=== PATIENT | male | born 1955 | race African-American/Black ===

== ENCOUNTER 2022-11-20 09:27 | Inpatient (IN) | payer OTHER ==
[2022-11-20 10:17] VITALS: BMI 31.8
[2022-11-20] MEDS ORDERED: NALOXONE HCL (KLOXXADO) 8 MG SPRAY NS PRN (12:45)
[2022-11-20] MEDS ORDERED: LOPERAMIDE HCL 2 MG CAPSULE PO PRN (12:45)
[2022-11-20] MEDS ORDERED: POLYETHYLENE GLYCOL (HEALTHYLAX) 3350 17 GM PACKET PO PRN (12:45)
[2022-11-20] MEDS ORDERED: MAGNESIUM HYDROX 2400MG/30ML ORAL SUSPENSION 30 ML CUP PO PRN (12:45)
[2022-11-20] MEDS ORDERED: NALOXONE HCL 0.4 MG/ML VIAL IM PRN (12:45)
[2022-11-20] MEDS ORDERED: MAG HYDROX/AL HYDROX/SIMETH 30 ML UNIT-DOSE CUP PO PRN (12:45)
[2022-11-20] MEDS ORDERED: BENZOCAINE/MENTHOL (CHLORASEPTIC ) LOZENGE MM PRN (12:45)
[2022-11-20] MEDS ORDERED: DICYCLOMINE HCL 10 MG CAPSULE PO PRN (12:45)
[2022-11-20] MEDS ORDERED: BENZONATATE 200 MG CAPSULE PO PRN (12:45)
[2022-11-20] MEDS ORDERED: NICOTINE 10 MG CARTRIDGE (INHALER) IH PRN (12:45)
[2022-11-20] MEDS ORDERED: guaiFENesin 600 MG TABLET.ER (FP) PO PRN (12:45)
[2022-11-20] MEDS ORDERED: hydrOXYzine PAMOATE 25 MG CAPSULE (FP) PO PRN (12:45)
[2022-11-20] MEDS ORDERED: IBUPROFEN 600 MG TABLET (FP) PO PRN (12:45)
[2022-11-20] MEDS ORDERED: BISMUTH SUBSALICYLATE 524 MG/30 ML PO PRN (12:45)
[2022-11-20] MEDS ORDERED: LORazepam 1 MG TABLET PO PRN (12:45)
[2022-11-20] MEDS ORDERED: ONDANSETRON *ODT* 4 MG TABLET SL PRN (12:45)
[2022-11-20] MEDS ORDERED: IBUPROFEN 400 MG TABLET (FP) PO PRN (12:45)
[2022-11-20] MEDS ORDERED: LORazepam 2 MG TABLET ONE (13:38)
[2022-11-20] MEDS: LORazepam 2 MG TABLET PO SCH ×3 (13:43→22:43)
[2022-11-20] MEDS: amLODIPine BESYLATE 2.5 MG TABLET (FP) PO SCH (14:08)
[2022-11-20] MEDS: GABAPENTIN 300 MG CAPSULE PO SCH ×2 (14:41→22:43)
[2022-11-20] MEDS: NITROFURANTOIN MACROCRYSTAL 50 MG CAPSULE (FP) PO SCH ×3 (15:54→22:44)
[2022-11-20 16:04] LABS: HEMATOCRIT 40.1 % (35.4-49); HEMOGLOBIN 13.3 GM/dL (11.7-16.9); MCH 29.9 pg (25.7-33.7); MEAN CELL VOLUME 90.6 fl (80-96); MEAN PLT VOLUME 8.2 fl (7.5-11.1); PLATELET COUNT 311 10^3/uL (134-434); RBC 4.43 M/mm3 (4.00-5.60); RDW 15.1 % (11.9-15.9); WHITE BLOOD COUNT 6.3 K/mm3 (4.0-10.0)
[2022-11-20] MEDS ORDERED: DIVALPROEX NA *ER* EXTEND REL 500 MG TABLET.SA (FP) PO SCH (22:00)
[2022-11-20] MEDS ORDERED: MELATONIN 5 MG TABLETS PO SCH (22:00)
[2022-11-20] MEDS: THIAMINE HCL 100 MG TABLET (FP) PO SCH (22:43)
[2022-11-20] MEDS: CELECOXIB 100 MG CAPSULE PO SCH (22:43)
[2022-11-21] MEDS: GABAPENTIN 300 MG CAPSULE PO SCH ×3 (05:34→22:19)
[2022-11-21] MEDS: LORazepam 2 MG TABLET PO SCH ×2 (05:34→11:03)
[2022-11-21] MEDS ORDERED: ISOSORBIDE MONONITRATE 60 MG TAB.SR.24H (FP) PO SCH (10:00)
[2022-11-21] MEDS ORDERED: PATIENT'S OWN MEDICATION (NON-FORMULARY) (Folic Acid [Folic Acid] 0.8 MG Tablet) PO SCH (10:00)
[2022-11-21] MEDS: NITROFURANTOIN MACROCRYSTAL 50 MG CAPSULE (FP) PO SCH ×4 (10:45→22:19)
[2022-11-21] MEDS: amLODIPine BESYLATE 2.5 MG TABLET (FP) PO SCH (10:45)
[2022-11-21] MEDS: PRENATAL VITAMINS W/ FOLIC ACID TABLET (FP) PO SCH (10:45)
[2022-11-21] MEDS: CELECOXIB 100 MG CAPSULE PO SCH ×2 (10:45→22:19)
[2022-11-21] MEDS: NICOTINE 21 MG/24 HOURS TOPICAL PATCH TD SCH (10:45)
[2022-11-21] MEDS: DULoxetine HCL 30 MG CAPSULE.DR PO SCH ×2 (10:46→22:20)
[2022-11-21] MEDS: METHOCARBAMOL 500 MG TABLET PO PRN ×2 (10:47→18:47)
[2022-11-21 11:28] LABS: POTASSIUM 5.4 mmol/L (3.5-5.1)
[2022-11-21 11:31] LABS: ALBUMIN 3.6 g/dl (3.4-5.0)
[2022-11-21 11:34] LABS: CREATININE 0.9 mg/dL (0.55-1.3)
[2022-11-21 11:35] LABS: BILIRUBIN,TOTAL 0.8 mg/dL (0.2-1); TOT PROT 7.3 g/dl (6.4-8.2)
[2022-11-21] MEDS: ARTIFICIAL TEARS (POLYVINYL ALCOHOL) OPTH DROPS OD SCH (12:24)
[2022-11-21] MEDS: ISOSORBIDE MONONITRATE 30 MG TAB.SR.24H (FP) PO SCH (12:24)
[2022-11-21] MEDS ORDERED: MELATONIN 5 MG TABLETS PO PRN (12:49)
[2022-11-21] MEDS ORDERED: chlordiazePOXIDE HCL 25 MG CAPSULE PO PRN (12:50)
[2022-11-21] MEDS ORDERED: SODIUM POLYSTYRENE SULFONATE 15 GM/60 ML BOTTLE PO ONE (12:51)
[2022-11-21] MEDS: NICOTINE POLACRILEX 2 MG GUM BUC PRN (13:20)
[2022-11-21] MEDS: ASPIRIN COATED 81 MG TABLET.EC PO SCH (15:36)
[2022-11-21] MEDS: chlordiazePOXIDE HCL 25 MG CAPSULE PO SCH ×2 (17:20→22:20)
[2022-11-21] MEDS: THIAMINE HCL 100 MG TABLET (FP) PO SCH (22:21)
[2022-11-22] MEDS ORDERED: LORazepam 1 MG TABLET PO SCH (05:00)
[2022-11-22] MEDS: GABAPENTIN 300 MG CAPSULE PO SCH ×3 (05:53→22:24)
[2022-11-22] MEDS: chlordiazePOXIDE HCL 25 MG CAPSULE PO SCH ×4 (05:53→22:24)
[2022-11-22] MEDS: NICOTINE 21 MG/24 HOURS TOPICAL PATCH TD SCH (10:32)
[2022-11-22] MEDS: ARTIFICIAL TEARS (POLYVINYL ALCOHOL) OPTH DROPS OD SCH (10:33)
[2022-11-22] MEDS: CELECOXIB 100 MG CAPSULE PO SCH ×2 (10:33→22:24)
[2022-11-22] MEDS: ASPIRIN COATED 81 MG TABLET.EC PO SCH (10:33)
[2022-11-22] MEDS: PRENATAL VITAMINS W/ FOLIC ACID TABLET (FP) PO SCH (10:33)
[2022-11-22] MEDS: NITROFURANTOIN MACROCRYSTAL 50 MG CAPSULE (FP) PO SCH ×4 (10:34→22:24)
[2022-11-22] MEDS: ISOSORBIDE MONONITRATE 30 MG TAB.SR.24H (FP) PO SCH (10:34)
[2022-11-22] MEDS: amLODIPine BESYLATE 2.5 MG TABLET (FP) PO SCH (10:34)
[2022-11-22] MEDS: DULoxetine HCL 30 MG CAPSULE.DR PO SCH (10:48)
[2022-11-22] MEDS: THIAMINE HCL 100 MG TABLET (FP) PO SCH (22:24)
[2022-11-22] MEDS: QUEtiapine FUMARATE 400 MG TABLET PO SCH (22:24)
[2022-11-22] MEDS: DIVALPROEX NA *ER* EXTEND REL 500 MG TABLET.SA (FP) PO SCH (22:25)
[2022-11-23] MEDS ORDERED: LORazepam 0.5 MG TABLET PO PRN
[2022-11-23] MEDS ORDERED: LORazepam 0.5 MG TABLET PO SCH (05:00)
[2022-11-23] MEDS: GABAPENTIN 300 MG CAPSULE PO SCH ×3 (05:20→22:15)
[2022-11-23] MEDS: chlordiazePOXIDE HCL 10 MG CAPSULE PO SCH ×4 (05:20→22:19)
[2022-11-23] MEDS: ARTIFICIAL TEARS (POLYVINYL ALCOHOL) OPTH DROPS OD SCH (10:12)
[2022-11-23] MEDS: ASPIRIN COATED 81 MG TABLET.EC PO SCH (10:13)
[2022-11-23] MEDS: amLODIPine BESYLATE 2.5 MG TABLET (FP) PO SCH (10:13)
[2022-11-23] MEDS: DULoxetine HCL 30 MG CAPSULE.DR PO SCH (10:13)
[2022-11-23] MEDS: NITROFURANTOIN MACROCRYSTAL 50 MG CAPSULE (FP) PO SCH ×4 (10:13→22:17)
[2022-11-23] MEDS: PRENATAL VITAMINS W/ FOLIC ACID TABLET (FP) PO SCH (10:13)
[2022-11-23] MEDS: ISOSORBIDE MONONITRATE 30 MG TAB.SR.24H (FP) PO SCH (10:14)
[2022-11-23] MEDS: CELECOXIB 100 MG CAPSULE PO SCH ×2 (10:14→22:16)
[2022-11-23] MEDS: NICOTINE 21 MG/24 HOURS TOPICAL PATCH TD SCH (10:14)
[2022-11-23] MEDS: ACETAMINOPHEN 325 MG TABLET (FP) PO PRN (10:54)
[2022-11-23] MEDS: NICOTINE POLACRILEX 2 MG GUM BUC PRN ×2 (14:06→18:10)
[2022-11-23] MEDS: METHOCARBAMOL 500 MG TABLET PO PRN (14:08)
[2022-11-23] MEDS: THIAMINE HCL 100 MG TABLET (FP) PO SCH (22:15)
[2022-11-23] MEDS: QUEtiapine FUMARATE 400 MG TABLET PO SCH (22:16)
[2022-11-23] MEDS: DIVALPROEX NA *ER* EXTEND REL 500 MG TABLET.SA (FP) PO SCH (22:17)
[2022-11-24] MEDS ORDERED: chlordiazePOXIDE HCL 10 MG CAPSULE PO PRN
[2022-11-24] MEDS ORDERED: LORazepam 0.5 MG TABLET PO ONE (05:00)
[2022-11-24] MEDS: GABAPENTIN 300 MG CAPSULE PO SCH ×3 (06:00→21:07)
[2022-11-24] MEDS: chlordiazePOXIDE HCL 10 MG CAPSULE PO SCH ×2 (06:02→17:22)
[2022-11-24] MEDS: PRENATAL VITAMINS W/ FOLIC ACID TABLET (FP) PO SCH (10:11)
[2022-11-24] MEDS: NICOTINE 21 MG/24 HOURS TOPICAL PATCH TD SCH (10:12)
[2022-11-24] MEDS: ARTIFICIAL TEARS (POLYVINYL ALCOHOL) OPTH DROPS OD SCH (10:13)
[2022-11-24] MEDS: CELECOXIB 100 MG CAPSULE PO SCH ×2 (10:13→21:08)
[2022-11-24] MEDS: NITROFURANTOIN MACROCRYSTAL 50 MG CAPSULE (FP) PO SCH ×4 (10:13→21:08)
[2022-11-24] MEDS: NICOTINE POLACRILEX 2 MG GUM BUC PRN ×2 (10:14→17:25)
[2022-11-24] MEDS: ASPIRIN COATED 81 MG TABLET.EC PO SCH (10:14)
[2022-11-24] MEDS: DULoxetine HCL 30 MG CAPSULE.DR PO SCH (10:14)
[2022-11-24] MEDS: ISOSORBIDE MONONITRATE 30 MG TAB.SR.24H (FP) PO SCH (10:14)
[2022-11-24] MEDS: amLODIPine BESYLATE 2.5 MG TABLET (FP) PO SCH (10:14)
[2022-11-24] MEDS: THIAMINE HCL 100 MG TABLET (FP) PO SCH (21:07)
[2022-11-24] MEDS: QUEtiapine FUMARATE 400 MG TABLET PO SCH (21:07)
[2022-11-24] MEDS: DIVALPROEX NA *ER* EXTEND REL 500 MG TABLET.SA (FP) PO SCH (21:09)
[2022-11-24] MEDS: ACETAMINOPHEN 325 MG TABLET (FP) PO PRN (21:10)
[2022-11-25] MEDS ORDERED: chlordiazePOXIDE HCL 10 MG CAPSULE PO ONE (05:00)
[2022-11-25] MEDS: GABAPENTIN 300 MG CAPSULE PO SCH (05:53)
[2022-11-25 09:29] VITALS: BP 145/93; PULSE 83; RESP 19; TEMP 97.3
[2022-11-25] MEDS: PRENATAL VITAMINS W/ FOLIC ACID TABLET (FP) PO SCH (10:38)
[2022-11-25] MEDS: DULoxetine HCL 30 MG CAPSULE.DR PO SCH (10:39)
[2022-11-25] MEDS: ISOSORBIDE MONONITRATE 30 MG TAB.SR.24H (FP) PO SCH (10:39)
[2022-11-25] MEDS: CELECOXIB 100 MG CAPSULE PO SCH (10:40)
[2022-11-25] MEDS: amLODIPine BESYLATE 2.5 MG TABLET (FP) PO SCH (10:40)
[2022-11-25] MEDS: ASPIRIN COATED 81 MG TABLET.EC PO SCH (10:40)
[2022-11-25] MEDS: ARTIFICIAL TEARS (POLYVINYL ALCOHOL) OPTH DROPS OD SCH (10:41)
[2022-11-25] MEDS: NITROFURANTOIN MACROCRYSTAL 50 MG CAPSULE (FP) PO SCH (10:41)
[2022-11-25] MEDS: NICOTINE 21 MG/24 HOURS TOPICAL PATCH TD SCH (10:43)
[2022-11-25] MEDS: NICOTINE POLACRILEX 2 MG GUM BUC PRN (10:44)
== END 2022-11-25 12:19 | disposition other institution (70) | DRG 897 ==
LOC: YASAS 09:27 → Y6N 12:47
PROVIDERS: ADMIT Allergy & Immunology; ATTEND Surgery
PROC: HZ2ZZZZ Detoxification Services for Substance Abuse Treatment (ICD-10-PCS; principal; 2022-11-20)
DX: F10.230 Alcohol dependence with withdrawal, uncomplicated (principal); F17.210 Nicotine dependence, cigarettes, uncomplicated; F10.282 Alcohol dependence with alcohol-induced sleep disorder; F10.280 Alcohol dependence with alcohol-induced anxiety disorder; F10.24 Alcohol dependence with alcohol-induced mood disorder; F31.9 Bipolar disorder, unspecified; E87.5 Hyperkalemia; E78.5 Hyperlipidemia, unspecified; I10 Essential (primary) hypertension; Z62.810 Personal history of physical and sexual abuse in childhood; Z85.46 Personal history of malignant neoplasm of prostate; Z87.440 Personal history of urinary (tract) infections; Z88.8 Allergy status to other drugs, medicaments and biological substances; Z86.79 Personal history of other diseases of the circulatory system
CPT/HCPCS: 36415; 80053; 80164; 82140; 84132; 85027; 86780; 87811; 93005; 93010; C9803-CS; U0003; U0005

== ENCOUNTER 2022-11-25 12:29 | Inpatient (IN) | payer OTHER ==
[2022-11-25] MEDS ORDERED: BENZONATATE 200 MG CAPSULE PO PRN (13:09)
[2022-11-25] MEDS ORDERED: BENZOCAINE/MENTHOL (CHLORASEPTIC ) LOZENGE MM PRN (13:09)
[2022-11-25] MEDS ORDERED: POLYETHYLENE GLYCOL (HEALTHYLAX) 3350 17 GM PACKET PO PRN (13:09)
[2022-11-25] MEDS ORDERED: IBUPROFEN 600 MG TABLET (FP) PO PRN (13:09)
[2022-11-25] MEDS ORDERED: hydrOXYzine PAMOATE 25 MG CAPSULE (FP) PO PRN (13:09)
[2022-11-25] MEDS ORDERED: guaiFENesin 600 MG TABLET.ER (FP) PO PRN (13:09)
[2022-11-25] MEDS ORDERED: METHOCARBAMOL 500 MG TABLET PO PRN (13:09)
[2022-11-25] MEDS ORDERED: LOPERAMIDE HCL 2 MG CAPSULE PO PRN (13:09)
[2022-11-25] MEDS ORDERED: MAG HYDROX/AL HYDROX/SIMETH 30 ML UNIT-DOSE CUP PO PRN (13:09)
[2022-11-25] MEDS ORDERED: IBUPROFEN 400 MG TABLET (FP) PO PRN (13:09)
[2022-11-25] MEDS ORDERED: AMMONIUM LACTATE 12% LOTION 225 GM BOTTLE TP PRN (13:09)
[2022-11-25] MEDS ORDERED: ACETAMINOPHEN 325 MG TABLET (FP) PO PRN (13:09)
[2022-11-25] MEDS ORDERED: [UNRECOGNIZED DRUG - OTHER] PO SCH (14:00)
[2022-11-25] MEDS: NITROFURANTOIN MACROCRYSTAL 50 MG CAPSULE (FP) PO SCH ×2 (15:03→17:58)
[2022-11-25] MEDS: GABAPENTIN 300 MG CAPSULE PO SCH ×2 (15:03→21:29)
[2022-11-25] MEDS: ACETAMINOPHEN 500 MG TABLET (FP) PO PRN (17:57)
[2022-11-25] MEDS: NICOTINE POLACRILEX 2 MG GUM BUC PRN (17:59)
[2022-11-25] MEDS: THIAMINE HCL 100 MG TABLET (FP) PO SCH (21:28)
[2022-11-25] MEDS: CELECOXIB 200 MG CAPSULE PO SCH (21:29)
[2022-11-25] MEDS: DIVALPROEX NA *ER* EXTEND REL 500 MG TABLET.SA (FP) PO SCH (21:29)
[2022-11-25] MEDS ORDERED: MELATONIN 5 MG TABLETS PO SCH (22:00)
[2022-11-25] MEDS ORDERED: QUEtiapine FUMARATE 400 MG TABLET PO SCH (22:00)
[2022-11-26] MEDS: GABAPENTIN 300 MG CAPSULE PO SCH ×3 (06:39→21:34)
[2022-11-26] MEDS: ACETAMINOPHEN 500 MG TABLET (FP) PO PRN ×3 (06:42→21:37)
[2022-11-26] MEDS ORDERED: ISOSORBIDE MONONITRATE 60 MG TAB.SR.24H (FP) PO SCH (10:00)
[2022-11-26] MEDS: CELECOXIB 200 MG CAPSULE PO SCH ×2 (10:09→21:33)
[2022-11-26] MEDS: NICOTINE 21 MG/24 HOURS TOPICAL PATCH TD SCH (10:09)
[2022-11-26] MEDS: amLODIPine BESYLATE 2.5 MG TABLET (FP) PO SCH (10:09)
[2022-11-26] MEDS: ARTIFICIAL TEARS (POLYVINYL ALCOHOL) OPTH DROPS OU SCH (10:09)
[2022-11-26] MEDS: PRENATAL VITAMINS W/ FOLIC ACID TABLET (FP) PO SCH (10:10)
[2022-11-26] MEDS: ASPIRIN 81 MG CHEWABLE TABLETS PO SCH (10:10)
[2022-11-26] MEDS: ISOSORBIDE MONONITRATE 30 MG TAB.SR.24H (FP) PO SCH (10:11)
[2022-11-26] MEDS: DULoxetine HCL 30 MG CAPSULE.DR PO SCH (10:11)
[2022-11-26] MEDS: NICOTINE POLACRILEX 2 MG GUM BUC PRN ×2 (10:11→13:19)
[2022-11-26] MEDS: DOCUSATE SODIUM 100 MG CAPSULE (FP) PO PRN (13:17)
[2022-11-26] MEDS: METHYL SALICYLATE/MENTHOL OINT 30 GM TUBE TP SCH (21:31)
[2022-11-26] MEDS: DIVALPROEX NA *ER* EXTEND REL 500 MG TABLET.SA (FP) PO SCH (21:33)
[2022-11-26] MEDS: THIAMINE HCL 100 MG TABLET (FP) PO SCH (21:34)
[2022-11-26] MEDS: QUETIAPINE FUMARATE 300 MG, QUETIAPINE FUMARATE 200 MG PO SCH (21:34)
[2022-11-26] MEDS ORDERED: QUEtiapine FUMARATE 400 MG TABLET PO SCH (22:00)
[2022-11-27] MEDS: GABAPENTIN 300 MG CAPSULE PO SCH ×3 (06:44→21:10)
[2022-11-27] MEDS: amLODIPine BESYLATE 2.5 MG TABLET (FP) PO SCH (09:58)
[2022-11-27] MEDS: DULoxetine HCL 30 MG CAPSULE.DR PO SCH (09:58)
[2022-11-27] MEDS: CELECOXIB 200 MG CAPSULE PO SCH ×2 (09:58→21:10)
[2022-11-27] MEDS: ASPIRIN 81 MG CHEWABLE TABLETS PO SCH (09:58)
[2022-11-27] MEDS: PRENATAL VITAMINS W/ FOLIC ACID TABLET (FP) PO SCH (09:58)
[2022-11-27] MEDS: ISOSORBIDE MONONITRATE 30 MG TAB.SR.24H (FP) PO SCH (09:59)
[2022-11-27] MEDS: NICOTINE 21 MG/24 HOURS TOPICAL PATCH TD SCH (09:59)
[2022-11-27] MEDS: ARTIFICIAL TEARS (POLYVINYL ALCOHOL) OPTH DROPS OU SCH (09:59)
[2022-11-27] MEDS: DOCUSATE SODIUM 100 MG CAPSULE (FP) PO PRN (10:01)
[2022-11-27] MEDS: NICOTINE POLACRILEX 2 MG GUM BUC PRN ×2 (10:01→13:48)
[2022-11-27] MEDS: METHYL SALICYLATE/MENTHOL OINT 30 GM TUBE TP SCH ×2 (10:04→21:11)
[2022-11-27] MEDS: THIAMINE HCL 100 MG TABLET (FP) PO SCH (21:09)
[2022-11-27] MEDS: DIVALPROEX NA *ER* EXTEND REL 500 MG TABLET.SA (FP) PO SCH (21:10)
[2022-11-27] MEDS: QUETIAPINE FUMARATE 300 MG, QUETIAPINE FUMARATE 200 MG PO SCH (21:11)
[2022-11-28] MEDS: GABAPENTIN 300 MG CAPSULE PO SCH ×3 (05:58→21:19)
[2022-11-28] MEDS: BACLOFEN 10 MG TABLET (FP) PO PRN ×2 (05:58→13:30)
[2022-11-28] MEDS: PRENATAL VITAMINS W/ FOLIC ACID TABLET (FP) PO SCH (09:53)
[2022-11-28] MEDS: ASPIRIN 81 MG CHEWABLE TABLETS PO SCH (09:53)
[2022-11-28] MEDS: amLODIPine BESYLATE 2.5 MG TABLET (FP) PO SCH (09:53)
[2022-11-28] MEDS: ARTIFICIAL TEARS (POLYVINYL ALCOHOL) OPTH DROPS OU SCH (09:53)
[2022-11-28] MEDS: NICOTINE 21 MG/24 HOURS TOPICAL PATCH TD SCH (09:53)
[2022-11-28] MEDS: DULoxetine HCL 30 MG CAPSULE.DR PO SCH (09:53)
[2022-11-28] MEDS: CELECOXIB 200 MG CAPSULE PO SCH ×2 (09:54→21:19)
[2022-11-28] MEDS: DOCUSATE SODIUM 100 MG CAPSULE (FP) PO PRN (09:57)
[2022-11-28] MEDS: NICOTINE POLACRILEX 2 MG GUM BUC PRN (09:57)
[2022-11-28] MEDS: METHYL SALICYLATE/MENTHOL OINT 30 GM TUBE TP SCH ×2 (10:24→21:21)
[2022-11-28] MEDS: ISOSORBIDE MONONITRATE 60 MG TAB.SR.24H (FP) PO SCH (10:54)
[2022-11-28] MEDS: NICOTINE 10 MG CARTRIDGE (INHALER) IH SCH (16:26)
[2022-11-28] MEDS: THIAMINE HCL 100 MG TABLET (FP) PO SCH (21:18)
[2022-11-28] MEDS: DIVALPROEX NA *ER* EXTEND REL 500 MG TABLET.SA (FP) PO SCH (21:19)
[2022-11-28] MEDS: QUETIAPINE FUMARATE 300 MG, QUETIAPINE FUMARATE 200 MG PO SCH (21:19)
[2022-11-28] MEDS: MAGNESIUM HYDROX 2400MG/30ML ORAL SUSPENSION 30 ML CUP PO PRN (21:20)
[2022-11-29] MEDS: GABAPENTIN 300 MG CAPSULE PO SCH ×3 (06:10→21:08)
[2022-11-29] MEDS: PRENATAL VITAMINS W/ FOLIC ACID TABLET (FP) PO SCH (09:59)
[2022-11-29] MEDS: NICOTINE 10 MG CARTRIDGE (INHALER) IH SCH (09:59)
[2022-11-29] MEDS: NICOTINE 21 MG/24 HOURS TOPICAL PATCH TD SCH (09:59)
[2022-11-29] MEDS: BACLOFEN 10 MG TABLET (FP) PO PRN ×2 (10:01→21:08)
[2022-11-29] MEDS: ASPIRIN 81 MG CHEWABLE TABLETS PO SCH (10:02)
[2022-11-29] MEDS: amLODIPine BESYLATE 2.5 MG TABLET (FP) PO SCH (10:02)
[2022-11-29] MEDS: CELECOXIB 200 MG CAPSULE PO SCH ×2 (10:02→21:08)
[2022-11-29] MEDS: DULoxetine HCL 30 MG CAPSULE.DR PO SCH (10:02)
[2022-11-29] MEDS: ISOSORBIDE MONONITRATE 60 MG TAB.SR.24H (FP) PO SCH (10:03)
[2022-11-29] MEDS: ARTIFICIAL TEARS (POLYVINYL ALCOHOL) OPTH DROPS OU SCH (10:04)
[2022-11-29] MEDS: METHYL SALICYLATE/MENTHOL OINT 30 GM TUBE TP SCH ×2 (10:04→21:09)
[2022-11-29] MEDS: HYDROCORTISONE 2.5% TOPICAL CREAM 30 GM TUBE RC PRN ×2 (12:39→21:10)
[2022-11-29] MEDS: ACETAMINOPHEN 500 MG TABLET (FP) PO PRN (12:41)
[2022-11-29] MEDS: DOCUSATE SODIUM 100 MG CAPSULE (FP) PO PRN ×2 (12:42→21:08)
[2022-11-29] MEDS: NICOTINE POLACRILEX 2 MG GUM BUC PRN (12:48)
[2022-11-29] MEDS: QUETIAPINE FUMARATE 300 MG, QUETIAPINE FUMARATE 200 MG PO SCH (21:08)
[2022-11-29] MEDS: DIVALPROEX NA *ER* EXTEND REL 500 MG TABLET.SA (FP) PO SCH (21:08)
[2022-11-29] MEDS: THIAMINE HCL 100 MG TABLET (FP) PO SCH (21:08)
[2022-11-30] MEDS: GABAPENTIN 300 MG CAPSULE PO SCH ×3 (06:18→21:22)
[2022-11-30] MEDS: BACLOFEN 10 MG TABLET (FP) PO PRN ×2 (06:18→21:22)
[2022-11-30] MEDS: NICOTINE 10 MG CARTRIDGE (INHALER) IH SCH (10:16)
[2022-11-30] MEDS: PRENATAL VITAMINS W/ FOLIC ACID TABLET (FP) PO SCH (10:16)
[2022-11-30] MEDS: DULoxetine HCL 30 MG CAPSULE.DR PO SCH (10:17)
[2022-11-30] MEDS: ASPIRIN 81 MG CHEWABLE TABLETS PO SCH (10:17)
[2022-11-30] MEDS: CELECOXIB 200 MG CAPSULE PO SCH ×2 (10:18→21:23)
[2022-11-30] MEDS: amLODIPine BESYLATE 2.5 MG TABLET (FP) PO SCH (10:18)
[2022-11-30] MEDS: ISOSORBIDE MONONITRATE 60 MG TAB.SR.24H (FP) PO SCH (10:19)
[2022-11-30] MEDS: METHYL SALICYLATE/MENTHOL OINT 30 GM TUBE TP SCH ×2 (10:20→21:23)
[2022-11-30] MEDS: ACETAMINOPHEN 500 MG TABLET (FP) PO PRN ×2 (10:20→17:39)
[2022-11-30] MEDS: ARTIFICIAL TEARS (POLYVINYL ALCOHOL) OPTH DROPS OU SCH (10:22)
[2022-11-30] MEDS: MAGNESIUM HYDROX 2400MG/30ML ORAL SUSPENSION 30 ML CUP PO PRN (10:23)
[2022-11-30] MEDS: HYDROCORTISONE 2.5% TOPICAL CREAM 30 GM TUBE RC PRN (10:24)
[2022-11-30] MEDS: NICOTINE POLACRILEX 2 MG GUM BUC PRN (11:00)
[2022-11-30] MEDS: NICOTINE 21 MG/24 HOURS TOPICAL PATCH TD SCH (11:00)
[2022-11-30] MEDS: QUETIAPINE FUMARATE 300 MG, QUETIAPINE FUMARATE 200 MG PO SCH (21:21)
[2022-11-30] MEDS: DIVALPROEX NA *ER* EXTEND REL 500 MG TABLET.SA (FP) PO SCH (21:22)
[2022-11-30] MEDS: THIAMINE HCL 100 MG TABLET (FP) PO SCH (21:22)
[2022-12-01] MEDS: BACLOFEN 10 MG TABLET (FP) PO PRN (06:16)
[2022-12-01] MEDS: GABAPENTIN 300 MG CAPSULE PO SCH ×3 (06:17→21:25)
[2022-12-01] MEDS: ACETAMINOPHEN 500 MG TABLET (FP) PO PRN (06:17)
[2022-12-01] MEDS: MAGNESIUM HYDROX 2400MG/30ML ORAL SUSPENSION 30 ML CUP PO PRN (06:21)
[2022-12-01] MEDS: DOCUSATE SODIUM 100 MG CAPSULE (FP) PO PRN (06:21)
[2022-12-01] MEDS: NICOTINE 10 MG CARTRIDGE (INHALER) IH SCH (09:59)
[2022-12-01] MEDS: NICOTINE 21 MG/24 HOURS TOPICAL PATCH TD SCH (09:59)
[2022-12-01] MEDS: ARTIFICIAL TEARS (POLYVINYL ALCOHOL) OPTH DROPS OU SCH (10:00)
[2022-12-01] MEDS: DULoxetine HCL 30 MG CAPSULE.DR PO SCH (10:00)
[2022-12-01] MEDS: METHYL SALICYLATE/MENTHOL OINT 30 GM TUBE TP SCH ×2 (10:01→21:27)
[2022-12-01] MEDS: amLODIPine BESYLATE 2.5 MG TABLET (FP) PO SCH (10:01)
[2022-12-01] MEDS: CELECOXIB 200 MG CAPSULE PO SCH ×2 (10:01→21:26)
[2022-12-01] MEDS: ASPIRIN 81 MG CHEWABLE TABLETS PO SCH (10:01)
[2022-12-01] MEDS: PRENATAL VITAMINS W/ FOLIC ACID TABLET (FP) PO SCH (10:02)
[2022-12-01] MEDS: NICOTINE POLACRILEX 2 MG GUM BUC PRN (10:02)
[2022-12-01] MEDS: ISOSORBIDE MONONITRATE 60 MG TAB.SR.24H (FP) PO SCH (10:02)
[2022-12-01] MEDS: COLLOIDAL OATMEAL 1 BAR EACH TP PRN (14:42)
[2022-12-01] MEDS: DIVALPROEX NA *ER* EXTEND REL 500 MG TABLET.SA (FP) PO SCH (21:26)
[2022-12-01] MEDS: QUETIAPINE FUMARATE 300 MG, QUETIAPINE FUMARATE 200 MG PO SCH (21:26)
[2022-12-01] MEDS: THIAMINE HCL 100 MG TABLET (FP) PO SCH (21:27)
[2022-12-02] MEDS: BACLOFEN 10 MG TABLET (FP) PO PRN ×2 (06:14→13:23)
[2022-12-02] MEDS: ACETAMINOPHEN 500 MG TABLET (FP) PO PRN ×3 (06:14→21:33)
[2022-12-02] MEDS: GABAPENTIN 300 MG CAPSULE PO SCH ×3 (06:15→21:34)
[2022-12-02] MEDS: NICOTINE 21 MG/24 HOURS TOPICAL PATCH TD SCH (10:20)
[2022-12-02] MEDS: NICOTINE 10 MG CARTRIDGE (INHALER) IH SCH (10:20)
[2022-12-02] MEDS: ARTIFICIAL TEARS (POLYVINYL ALCOHOL) OPTH DROPS OU SCH (10:21)
[2022-12-02] MEDS: ASPIRIN 81 MG CHEWABLE TABLETS PO SCH (10:22)
[2022-12-02] MEDS: PRENATAL VITAMINS W/ FOLIC ACID TABLET (FP) PO SCH (10:22)
[2022-12-02] MEDS: DULoxetine HCL 30 MG CAPSULE.DR PO SCH (10:22)
[2022-12-02] MEDS: amLODIPine BESYLATE 2.5 MG TABLET (FP) PO SCH (10:22)
[2022-12-02] MEDS: CELECOXIB 200 MG CAPSULE PO SCH ×2 (10:22→21:35)
[2022-12-02] MEDS: ISOSORBIDE MONONITRATE 60 MG TAB.SR.24H (FP) PO SCH (10:52)
[2022-12-02] MEDS: METHYL SALICYLATE/MENTHOL OINT 30 GM TUBE TP SCH ×2 (10:53→21:36)
[2022-12-02] MEDS: NICOTINE POLACRILEX 2 MG GUM BUC PRN (10:53)
[2022-12-02 18:39] LABS: PH,URINE 7.5 (5.0-8.0); URINE APPEARANCE CLEAR; URINE BILIRUBIN NEGATIVE (NEGATIVE); URINE COLOR YELLOW; URINE GLUCOSE (UA) NEGATIVE (NEGATIVE); URINE KETONE NEGATIVE (NEGATIVE); URINE LEUK ESTERASE NEGATIVE (NEGATIVE); URINE NITRITE NEGATIVE (NEGATIVE); URINE PROTEIN NEGATIVE (NEGATIVE); URINE UROBILINOGEN 0.2 mg/dL (0.2-1.0)
[2022-12-02] MEDS: QUETIAPINE FUMARATE 300 MG, QUETIAPINE FUMARATE 200 MG PO SCH (21:34)
[2022-12-02] MEDS: THIAMINE HCL 100 MG TABLET (FP) PO SCH (21:35)
[2022-12-02] MEDS: DIVALPROEX NA *ER* EXTEND REL 500 MG TABLET.SA (FP) PO SCH (21:35)
[2022-12-03] MEDS: GABAPENTIN 300 MG CAPSULE PO SCH ×3 (06:20→21:12)
[2022-12-03] MEDS: BACLOFEN 10 MG TABLET (FP) PO PRN ×2 (06:22→21:12)
[2022-12-03] MEDS: ACETAMINOPHEN 500 MG TABLET (FP) PO PRN ×2 (07:01→21:14)
[2022-12-03] MEDS ORDERED: TAMSULOSIN HCL 0.4 MG CAP PO SCH (08:30)
[2022-12-03] MEDS: ASPIRIN 81 MG CHEWABLE TABLETS PO SCH (10:27)
[2022-12-03] MEDS: ARTIFICIAL TEARS (POLYVINYL ALCOHOL) OPTH DROPS OU SCH (10:28)
[2022-12-03] MEDS: HYDROCORTISONE 2.5% TOPICAL CREAM 30 GM TUBE RC PRN (10:29)
[2022-12-03] MEDS: METHYL SALICYLATE/MENTHOL OINT 30 GM TUBE TP SCH ×2 (10:29→21:14)
[2022-12-03] MEDS: CELECOXIB 200 MG CAPSULE PO SCH ×2 (10:30→21:12)
[2022-12-03] MEDS: DULoxetine HCL 30 MG CAPSULE.DR PO SCH (10:30)
[2022-12-03] MEDS: NICOTINE 10 MG CARTRIDGE (INHALER) IH SCH (10:32)
[2022-12-03] MEDS: NICOTINE 21 MG/24 HOURS TOPICAL PATCH TD SCH (10:32)
[2022-12-03] MEDS: ISOSORBIDE MONONITRATE 30 MG TAB.SR.24H (FP) PO SCH (10:32)
[2022-12-03] MEDS: PRENATAL VITAMINS W/ FOLIC ACID TABLET (FP) PO SCH (10:33)
[2022-12-03] MEDS ORDERED: TAMSULOSIN HCL 0.4 MG CAP PO ONE (10:59)
[2022-12-03] MEDS: amLODIPine BESYLATE 2.5 MG TABLET (FP) PO SCH (11:37)
[2022-12-03] MEDS: NICOTINE POLACRILEX 2 MG GUM BUC PRN (11:39)
[2022-12-03] MEDS: THIAMINE HCL 100 MG TABLET (FP) PO SCH (21:12)
[2022-12-03] MEDS: DIVALPROEX NA *ER* EXTEND REL 500 MG TABLET.SA (FP) PO SCH (21:12)
[2022-12-03] MEDS: QUETIAPINE FUMARATE 300 MG, QUETIAPINE FUMARATE 200 MG PO SCH (21:13)
[2022-12-04] MEDS: GABAPENTIN 300 MG CAPSULE PO SCH ×3 (06:16→21:21)
[2022-12-04] MEDS: BACLOFEN 10 MG TABLET (FP) PO PRN (06:17)
[2022-12-04] MEDS: ACETAMINOPHEN 500 MG TABLET (FP) PO PRN (06:18)
[2022-12-04] MEDS: TAMSULOSIN HCL 0.4 MG CAP PO SCH (07:12)
[2022-12-04] MEDS: PRENATAL VITAMINS W/ FOLIC ACID TABLET (FP) PO SCH (09:46)
[2022-12-04] MEDS: amLODIPine BESYLATE 2.5 MG TABLET (FP) PO SCH (09:47)
[2022-12-04] MEDS: DULoxetine HCL 30 MG CAPSULE.DR PO SCH (09:47)
[2022-12-04] MEDS: CELECOXIB 200 MG CAPSULE PO SCH ×2 (09:47→21:21)
[2022-12-04] MEDS: ASPIRIN 81 MG CHEWABLE TABLETS PO SCH (09:47)
[2022-12-04] MEDS: ARTIFICIAL TEARS (POLYVINYL ALCOHOL) OPTH DROPS OU SCH (09:49)
[2022-12-04] MEDS: METHYL SALICYLATE/MENTHOL OINT 30 GM TUBE TP SCH ×2 (09:49→21:22)
[2022-12-04] MEDS: ISOSORBIDE MONONITRATE 30 MG TAB.SR.24H (FP) PO SCH (09:51)
[2022-12-04] MEDS: NICOTINE 21 MG/24 HOURS TOPICAL PATCH TD SCH (09:51)
[2022-12-04] MEDS: NICOTINE 10 MG CARTRIDGE (INHALER) IH SCH (09:52)
[2022-12-04] MEDS: NICOTINE POLACRILEX 2 MG GUM BUC PRN (09:53)
[2022-12-04] MEDS: COLLOIDAL OATMEAL 1 BAR EACH TP PRN (13:26)
[2022-12-04] MEDS: DIVALPROEX NA *ER* EXTEND REL 500 MG TABLET.SA (FP) PO SCH (21:21)
[2022-12-04] MEDS: QUETIAPINE FUMARATE 300 MG, QUETIAPINE FUMARATE 200 MG PO SCH (21:21)
[2022-12-04] MEDS: THIAMINE HCL 100 MG TABLET (FP) PO SCH (21:21)
[2022-12-04] MEDS: DOCUSATE SODIUM 100 MG CAPSULE (FP) PO PRN (21:21)
[2022-12-05] MEDS: ACETAMINOPHEN 500 MG TABLET (FP) PO PRN ×2 (06:01→21:45)
[2022-12-05] MEDS: GABAPENTIN 300 MG CAPSULE PO SCH ×3 (06:02→21:44)
[2022-12-05] MEDS: BACLOFEN 10 MG TABLET (FP) PO PRN (06:03)
[2022-12-05] MEDS: TAMSULOSIN HCL 0.4 MG CAP PO SCH (07:06)
[2022-12-05] MEDS: ASPIRIN 81 MG CHEWABLE TABLETS PO SCH (10:11)
[2022-12-05] MEDS: PRENATAL VITAMINS W/ FOLIC ACID TABLET (FP) PO SCH (10:11)
[2022-12-05] MEDS: CELECOXIB 200 MG CAPSULE PO SCH ×2 (10:12→21:44)
[2022-12-05] MEDS: DULoxetine HCL 30 MG CAPSULE.DR PO SCH (10:12)
[2022-12-05] MEDS: ISOSORBIDE MONONITRATE 30 MG TAB.SR.24H (FP) PO SCH (10:13)
[2022-12-05] MEDS: METHYL SALICYLATE/MENTHOL OINT 30 GM TUBE TP SCH ×2 (10:13→21:47)
[2022-12-05] MEDS: ARTIFICIAL TEARS (POLYVINYL ALCOHOL) OPTH DROPS OU SCH (10:13)
[2022-12-05] MEDS: NICOTINE 10 MG CARTRIDGE (INHALER) IH SCH (10:14)
[2022-12-05] MEDS: NICOTINE 21 MG/24 HOURS TOPICAL PATCH TD SCH (10:14)
[2022-12-05] MEDS: amLODIPine BESYLATE 2.5 MG TABLET (FP) PO SCH (10:14)
[2022-12-05] MEDS: NICOTINE POLACRILEX 2 MG GUM BUC PRN (10:28)
[2022-12-05] MEDS: DIVALPROEX NA *ER* EXTEND REL 500 MG TABLET.SA (FP) PO SCH (21:44)
[2022-12-05] MEDS: QUETIAPINE FUMARATE 300 MG, QUETIAPINE FUMARATE 200 MG PO SCH (21:45)
[2022-12-05] MEDS: THIAMINE HCL 100 MG TABLET (FP) PO SCH (21:47)
[2022-12-06] MEDS: ACETAMINOPHEN 500 MG TABLET (FP) PO PRN ×2 (06:00→21:42)
[2022-12-06] MEDS: BACLOFEN 10 MG TABLET (FP) PO PRN (06:02)
[2022-12-06] MEDS: GABAPENTIN 300 MG CAPSULE PO SCH ×3 (06:02→21:40)
[2022-12-06] MEDS: TAMSULOSIN HCL 0.4 MG CAP PO SCH (07:03)
[2022-12-06] MEDS: CELECOXIB 200 MG CAPSULE PO SCH ×2 (09:53→21:40)
[2022-12-06] MEDS: NICOTINE 21 MG/24 HOURS TOPICAL PATCH TD SCH (09:53)
[2022-12-06] MEDS: PRENATAL VITAMINS W/ FOLIC ACID TABLET (FP) PO SCH (09:53)
[2022-12-06] MEDS: NICOTINE 10 MG CARTRIDGE (INHALER) IH SCH (09:54)
[2022-12-06] MEDS: ISOSORBIDE MONONITRATE 30 MG TAB.SR.24H (FP) PO SCH (09:56)
[2022-12-06] MEDS: DULoxetine HCL 30 MG CAPSULE.DR PO SCH (09:56)
[2022-12-06] MEDS: amLODIPine BESYLATE 2.5 MG TABLET (FP) PO SCH (09:58)
[2022-12-06] MEDS: NICOTINE POLACRILEX 2 MG GUM BUC PRN (09:59)
[2022-12-06] MEDS: ARTIFICIAL TEARS (POLYVINYL ALCOHOL) OPTH DROPS OU SCH (10:51)
[2022-12-06] MEDS: METHYL SALICYLATE/MENTHOL OINT 30 GM TUBE TP SCH ×2 (10:52→21:39)
[2022-12-06] MEDS: ASPIRIN 81 MG CHEWABLE TABLETS PO SCH (10:52)
[2022-12-06] MEDS: COLLOIDAL OATMEAL 1 BAR EACH TP PRN (11:12)
[2022-12-06] MEDS: DIVALPROEX NA *ER* EXTEND REL 500 MG TABLET.SA (FP) PO SCH (21:39)
[2022-12-06] MEDS: QUETIAPINE FUMARATE 300 MG, QUETIAPINE FUMARATE 200 MG PO SCH (21:39)
[2022-12-06] MEDS: THIAMINE HCL 100 MG TABLET (FP) PO SCH (21:40)
[2022-12-07] MEDS: BACLOFEN 10 MG TABLET (FP) PO PRN ×2 (06:19→21:08)
[2022-12-07] MEDS: ACETAMINOPHEN 500 MG TABLET (FP) PO PRN ×2 (06:19→21:08)
[2022-12-07] MEDS: GABAPENTIN 300 MG CAPSULE PO SCH ×3 (06:20→21:08)
[2022-12-07] MEDS: TAMSULOSIN HCL 0.4 MG CAP PO SCH (07:20)
[2022-12-07] MEDS: PRENATAL VITAMINS W/ FOLIC ACID TABLET (FP) PO SCH (09:57)
[2022-12-07] MEDS: ARTIFICIAL TEARS (POLYVINYL ALCOHOL) OPTH DROPS OU SCH (09:57)
[2022-12-07] MEDS: amLODIPine BESYLATE 2.5 MG TABLET (FP) PO SCH (09:58)
[2022-12-07] MEDS: NICOTINE 21 MG/24 HOURS TOPICAL PATCH TD SCH (09:58)
[2022-12-07] MEDS: DULoxetine HCL 30 MG CAPSULE.DR PO SCH (09:58)
[2022-12-07] MEDS: ISOSORBIDE MONONITRATE 30 MG TAB.SR.24H (FP) PO SCH (09:58)
[2022-12-07] MEDS: CELECOXIB 200 MG CAPSULE PO SCH ×2 (09:58→21:07)
[2022-12-07] MEDS: ASPIRIN 81 MG CHEWABLE TABLETS PO SCH (09:58)
[2022-12-07] MEDS: NICOTINE 10 MG CARTRIDGE (INHALER) IH SCH (09:59)
[2022-12-07] MEDS: METHYL SALICYLATE/MENTHOL OINT 30 GM TUBE TP SCH ×2 (10:08→21:09)
[2022-12-07] MEDS: THIAMINE HCL 100 MG TABLET (FP) PO SCH (21:07)
[2022-12-07] MEDS: QUETIAPINE FUMARATE 300 MG, QUETIAPINE FUMARATE 200 MG PO SCH (21:08)
[2022-12-07] MEDS: DIVALPROEX NA *ER* EXTEND REL 500 MG TABLET.SA (FP) PO SCH (21:08)
[2022-12-07] MEDS: DOCUSATE SODIUM 100 MG CAPSULE (FP) PO PRN (21:08)
[2022-12-08] MEDS: ACETAMINOPHEN 500 MG TABLET (FP) PO PRN ×3 (02:26→21:06)
[2022-12-08] MEDS: GABAPENTIN 300 MG CAPSULE PO SCH ×3 (06:26→21:06)
[2022-12-08] MEDS: BACLOFEN 10 MG TABLET (FP) PO PRN ×3 (06:26→21:06)
[2022-12-08] MEDS: TAMSULOSIN HCL 0.4 MG CAP PO SCH (07:02)
[2022-12-08] MEDS: PRENATAL VITAMINS W/ FOLIC ACID TABLET (FP) PO SCH (09:25)
[2022-12-08] MEDS: ARTIFICIAL TEARS (POLYVINYL ALCOHOL) OPTH DROPS OU SCH (09:26)
[2022-12-08] MEDS: DOCUSATE SODIUM 100 MG CAPSULE (FP) PO PRN (09:26)
[2022-12-08] MEDS: ASPIRIN 81 MG CHEWABLE TABLETS PO SCH (09:26)
[2022-12-08] MEDS: CELECOXIB 200 MG CAPSULE PO SCH ×2 (09:27→21:05)
[2022-12-08] MEDS: METHYL SALICYLATE/MENTHOL OINT 30 GM TUBE TP SCH ×2 (09:28→21:07)
[2022-12-08] MEDS: amLODIPine BESYLATE 2.5 MG TABLET (FP) PO SCH (09:30)
[2022-12-08] MEDS: DULoxetine HCL 30 MG CAPSULE.DR PO SCH (09:31)
[2022-12-08] MEDS: NICOTINE 21 MG/24 HOURS TOPICAL PATCH TD SCH (09:32)
[2022-12-08] MEDS: ISOSORBIDE MONONITRATE 30 MG TAB.SR.24H (FP) PO SCH (09:32)
[2022-12-08] MEDS: NICOTINE 10 MG CARTRIDGE (INHALER) IH SCH (09:33)
[2022-12-08] MEDS: HYDROCORTISONE 2.5% TOPICAL CREAM 30 GM TUBE RC PRN (10:08)
[2022-12-08] MEDS: QUETIAPINE FUMARATE 300 MG, QUETIAPINE FUMARATE 200 MG PO SCH (21:06)
[2022-12-08] MEDS: DIVALPROEX NA *ER* EXTEND REL 500 MG TABLET.SA (FP) PO SCH (21:06)
[2022-12-08] MEDS: THIAMINE HCL 100 MG TABLET (FP) PO SCH (21:06)
[2022-12-09] MEDS: GABAPENTIN 300 MG CAPSULE PO SCH ×3 (06:04→21:06)
[2022-12-09] MEDS: ACETAMINOPHEN 500 MG TABLET (FP) PO PRN (06:04)
[2022-12-09] MEDS: BACLOFEN 10 MG TABLET (FP) PO PRN (06:05)
[2022-12-09] MEDS: TAMSULOSIN HCL 0.4 MG CAP PO SCH ×2 (07:04→10:10)
[2022-12-09] MEDS: ASPIRIN 81 MG CHEWABLE TABLETS PO SCH (10:07)
[2022-12-09] MEDS: NICOTINE 21 MG/24 HOURS TOPICAL PATCH TD SCH (10:07)
[2022-12-09] MEDS: ISOSORBIDE MONONITRATE 30 MG TAB.SR.24H (FP) PO SCH (10:07)
[2022-12-09] MEDS: NICOTINE 10 MG CARTRIDGE (INHALER) IH SCH (10:07)
[2022-12-09] MEDS: PRENATAL VITAMINS W/ FOLIC ACID TABLET (FP) PO SCH (10:07)
[2022-12-09] MEDS: CELECOXIB 200 MG CAPSULE PO SCH ×2 (10:08→21:06)
[2022-12-09] MEDS: amLODIPine BESYLATE 2.5 MG TABLET (FP) PO SCH (10:08)
[2022-12-09] MEDS: METHYL SALICYLATE/MENTHOL OINT 30 GM TUBE TP SCH ×2 (10:08→21:07)
[2022-12-09] MEDS: DULoxetine HCL 30 MG CAPSULE.DR PO SCH (10:09)
[2022-12-09] MEDS: ARTIFICIAL TEARS (POLYVINYL ALCOHOL) OPTH DROPS OU SCH (10:10)
[2022-12-09] MEDS: LIDOCAINE HCL 5% TOP OINTMENT 50 GM TUBE TP SCH (13:16)
[2022-12-09] MEDS: NICOTINE POLACRILEX 2 MG GUM BUC PRN (13:21)
[2022-12-09] MEDS: QUETIAPINE FUMARATE 300 MG, QUETIAPINE FUMARATE 200 MG PO SCH (21:06)
[2022-12-09] MEDS: THIAMINE HCL 100 MG TABLET (FP) PO SCH (21:07)
[2022-12-09] MEDS: DIVALPROEX NA *ER* EXTEND REL 500 MG TABLET.SA (FP) PO SCH (21:07)
[2022-12-10] MEDS: GABAPENTIN 300 MG CAPSULE PO SCH ×3 (06:40→21:09)
[2022-12-10] MEDS: BACLOFEN 10 MG TABLET (FP) PO PRN ×2 (06:40→14:16)
[2022-12-10] MEDS: ACETAMINOPHEN 500 MG TABLET (FP) PO PRN ×2 (06:41→16:11)
[2022-12-10] MEDS: TAMSULOSIN HCL 0.4 MG CAP PO SCH (07:59)
[2022-12-10] MEDS: NICOTINE 10 MG CARTRIDGE (INHALER) IH SCH (10:11)
[2022-12-10] MEDS: ARTIFICIAL TEARS (POLYVINYL ALCOHOL) OPTH DROPS OU SCH (10:11)
[2022-12-10] MEDS: amLODIPine BESYLATE 2.5 MG TABLET (FP) PO SCH (10:12)
[2022-12-10] MEDS: ASPIRIN 81 MG CHEWABLE TABLETS PO SCH (10:12)
[2022-12-10] MEDS: PRENATAL VITAMINS W/ FOLIC ACID TABLET (FP) PO SCH (10:12)
[2022-12-10] MEDS: LIDOCAINE HCL 5% TOP OINTMENT 50 GM TUBE TP SCH (10:13)
[2022-12-10] MEDS: NICOTINE 21 MG/24 HOURS TOPICAL PATCH TD SCH (10:14)
[2022-12-10] MEDS: METHYL SALICYLATE/MENTHOL OINT 30 GM TUBE TP SCH ×2 (10:15→21:09)
[2022-12-10] MEDS: CELECOXIB 200 MG CAPSULE PO SCH ×2 (10:56→21:09)
[2022-12-10] MEDS: ISOSORBIDE MONONITRATE 30 MG TAB.SR.24H (FP) PO SCH (10:58)
[2022-12-10] MEDS: DULoxetine HCL 30 MG CAPSULE.DR PO SCH (10:58)
[2022-12-10] MEDS: NICOTINE POLACRILEX 2 MG GUM BUC PRN (11:54)
[2022-12-10] MEDS: DIVALPROEX NA *ER* EXTEND REL 500 MG TABLET.SA (FP) PO SCH (21:09)
[2022-12-10] MEDS: QUETIAPINE FUMARATE 300 MG, QUETIAPINE FUMARATE 200 MG PO SCH (21:09)
[2022-12-10] MEDS: THIAMINE HCL 100 MG TABLET (FP) PO SCH (21:09)
[2022-12-11] MEDS: GABAPENTIN 300 MG CAPSULE PO SCH ×3 (06:15→21:33)
[2022-12-11] MEDS: ACETAMINOPHEN 500 MG TABLET (FP) PO PRN ×2 (06:16→21:33)
[2022-12-11] MEDS: BACLOFEN 10 MG TABLET (FP) PO PRN ×2 (06:16→21:32)
[2022-12-11] MEDS: TAMSULOSIN HCL 0.4 MG CAP PO SCH (07:09)
[2022-12-11] MEDS: ARTIFICIAL TEARS (POLYVINYL ALCOHOL) OPTH DROPS OU SCH (09:59)
[2022-12-11] MEDS: ASPIRIN 81 MG CHEWABLE TABLETS PO SCH (10:01)
[2022-12-11] MEDS: LIDOCAINE HCL 5% TOP OINTMENT 50 GM TUBE TP SCH (10:01)
[2022-12-11] MEDS: NICOTINE 21 MG/24 HOURS TOPICAL PATCH TD SCH (10:02)
[2022-12-11] MEDS: CELECOXIB 200 MG CAPSULE PO SCH ×2 (10:03→21:32)
[2022-12-11] MEDS: DULoxetine HCL 30 MG CAPSULE.DR PO SCH (10:06)
[2022-12-11] MEDS: ISOSORBIDE MONONITRATE 30 MG TAB.SR.24H (FP) PO SCH (10:10)
[2022-12-11] MEDS: amLODIPine BESYLATE 2.5 MG TABLET (FP) PO SCH (10:11)
[2022-12-11] MEDS: PRENATAL VITAMINS W/ FOLIC ACID TABLET (FP) PO SCH (10:11)
[2022-12-11] MEDS: NICOTINE POLACRILEX 2 MG GUM BUC PRN (10:18)
[2022-12-11] MEDS: NICOTINE 10 MG CARTRIDGE (INHALER) IH SCH (10:19)
[2022-12-11] MEDS: METHYL SALICYLATE/MENTHOL OINT 30 GM TUBE TP SCH ×2 (10:19→21:34)
[2022-12-11] MEDS: THIAMINE HCL 100 MG TABLET (FP) PO SCH (21:32)
[2022-12-11] MEDS: DIVALPROEX NA *ER* EXTEND REL 500 MG TABLET.SA (FP) PO SCH (21:32)
[2022-12-11] MEDS: QUETIAPINE FUMARATE 300 MG, QUETIAPINE FUMARATE 200 MG PO SCH (21:33)
[2022-12-12] MEDS: BACLOFEN 10 MG TABLET (FP) PO PRN ×2 (05:52→21:30)
[2022-12-12] MEDS: ACETAMINOPHEN 500 MG TABLET (FP) PO PRN ×2 (05:52→21:31)
[2022-12-12] MEDS: GABAPENTIN 300 MG CAPSULE PO SCH ×3 (05:52→21:30)
[2022-12-12] MEDS: TAMSULOSIN HCL 0.4 MG CAP PO SCH (07:04)
[2022-12-12] MEDS: NICOTINE 21 MG/24 HOURS TOPICAL PATCH TD SCH (10:18)
[2022-12-12] MEDS: NICOTINE 10 MG CARTRIDGE (INHALER) IH SCH (10:18)
[2022-12-12] MEDS: ASPIRIN 81 MG CHEWABLE TABLETS PO SCH (10:18)
[2022-12-12] MEDS: PRENATAL VITAMINS W/ FOLIC ACID TABLET (FP) PO SCH (10:18)
[2022-12-12] MEDS: amLODIPine BESYLATE 2.5 MG TABLET (FP) PO SCH (10:18)
[2022-12-12] MEDS: LIDOCAINE HCL 5% TOP OINTMENT 50 GM TUBE TP SCH (10:21)
[2022-12-12] MEDS: ARTIFICIAL TEARS (POLYVINYL ALCOHOL) OPTH DROPS OU SCH (10:22)
[2022-12-12] MEDS: CELECOXIB 200 MG CAPSULE PO SCH ×2 (10:22→21:30)
[2022-12-12] MEDS: METHYL SALICYLATE/MENTHOL OINT 30 GM TUBE TP SCH ×2 (13:50→21:30)
[2022-12-12] MEDS: DULoxetine HCL 30 MG CAPSULE.DR PO SCH (13:50)
[2022-12-12] MEDS: ISOSORBIDE MONONITRATE 30 MG TAB.SR.24H (FP) PO SCH (15:47)
[2022-12-12] MEDS: DIVALPROEX NA *ER* EXTEND REL 500 MG TABLET.SA (FP) PO SCH (21:30)
[2022-12-12] MEDS: THIAMINE HCL 100 MG TABLET (FP) PO SCH (21:31)
[2022-12-12] MEDS: QUETIAPINE FUMARATE 300 MG, QUETIAPINE FUMARATE 200 MG PO SCH (21:31)
[2022-12-13] MEDS: GABAPENTIN 300 MG CAPSULE PO SCH ×3 (06:05→21:35)
[2022-12-13] MEDS: ACETAMINOPHEN 500 MG TABLET (FP) PO PRN ×2 (06:05→21:36)
[2022-12-13] MEDS: BACLOFEN 10 MG TABLET (FP) PO PRN ×2 (06:06→21:35)
[2022-12-13] MEDS: TAMSULOSIN HCL 0.4 MG CAP PO SCH (07:07)
[2022-12-13] MEDS: PRENATAL VITAMINS W/ FOLIC ACID TABLET (FP) PO SCH (10:18)
[2022-12-13] MEDS: amLODIPine BESYLATE 2.5 MG TABLET (FP) PO SCH (10:19)
[2022-12-13] MEDS: ISOSORBIDE MONONITRATE 60 MG TAB.SR.24H (FP) PO SCH (10:19)
[2022-12-13] MEDS: ASPIRIN 81 MG CHEWABLE TABLETS PO SCH (10:19)
[2022-12-13] MEDS: CELECOXIB 200 MG CAPSULE PO SCH ×2 (10:20→21:36)
[2022-12-13] MEDS: ARTIFICIAL TEARS (POLYVINYL ALCOHOL) OPTH DROPS OU SCH (10:20)
[2022-12-13] MEDS: DULoxetine HCL 30 MG CAPSULE.DR PO SCH (10:21)
[2022-12-13] MEDS: LIDOCAINE HCL 5% TOP OINTMENT 50 GM TUBE TP SCH (10:23)
[2022-12-13] MEDS: NICOTINE 21 MG/24 HOURS TOPICAL PATCH TD SCH (10:23)
[2022-12-13] MEDS: NICOTINE 10 MG CARTRIDGE (INHALER) IH SCH (10:23)
[2022-12-13] MEDS: METHYL SALICYLATE/MENTHOL OINT 30 GM TUBE TP SCH ×2 (10:24→21:36)
[2022-12-13] MEDS: NICOTINE POLACRILEX 2 MG GUM BUC PRN (12:46)
[2022-12-13] MEDS: QUETIAPINE FUMARATE 300 MG, QUETIAPINE FUMARATE 200 MG PO SCH (21:35)
[2022-12-13] MEDS: THIAMINE HCL 100 MG TABLET (FP) PO SCH (21:36)
[2022-12-13] MEDS: DIVALPROEX NA *ER* EXTEND REL 500 MG TABLET.SA (FP) PO SCH (21:36)
[2022-12-14] MEDS: ACETAMINOPHEN 500 MG TABLET (FP) PO PRN ×3 (06:04→21:33)
[2022-12-14] MEDS: GABAPENTIN 300 MG CAPSULE PO SCH ×3 (06:04→21:32)
[2022-12-14] MEDS: BACLOFEN 10 MG TABLET (FP) PO PRN ×3 (06:04→21:32)
[2022-12-14] MEDS: NICOTINE POLACRILEX 2 MG GUM BUC PRN (06:05)
[2022-12-14] MEDS: TAMSULOSIN HCL 0.4 MG CAP PO SCH (07:01)
[2022-12-14] MEDS: NICOTINE 21 MG/24 HOURS TOPICAL PATCH TD SCH (09:30)
[2022-12-14] MEDS: PRENATAL VITAMINS W/ FOLIC ACID TABLET (FP) PO SCH (09:31)
[2022-12-14] MEDS: ISOSORBIDE MONONITRATE 60 MG TAB.SR.24H (FP) PO SCH (09:31)
[2022-12-14] MEDS: amLODIPine BESYLATE 2.5 MG TABLET (FP) PO SCH (09:31)
[2022-12-14] MEDS: ASPIRIN 81 MG CHEWABLE TABLETS PO SCH (09:31)
[2022-12-14] MEDS: DULoxetine HCL 30 MG CAPSULE.DR PO SCH (09:32)
[2022-12-14] MEDS: CELECOXIB 200 MG CAPSULE PO SCH ×2 (09:32→21:32)
[2022-12-14] MEDS: NICOTINE 10 MG CARTRIDGE (INHALER) IH SCH (09:32)
[2022-12-14] MEDS: LIDOCAINE HCL 5% TOP OINTMENT 50 GM TUBE TP SCH (10:30)
[2022-12-14] MEDS: ARTIFICIAL TEARS (POLYVINYL ALCOHOL) OPTH DROPS OU SCH (11:13)
[2022-12-14] MEDS: METHYL SALICYLATE/MENTHOL OINT 30 GM TUBE TP SCH ×2 (13:31→21:34)
[2022-12-14] MEDS: THIAMINE HCL 100 MG TABLET (FP) PO SCH (21:31)
[2022-12-14] MEDS: QUETIAPINE FUMARATE 300 MG, QUETIAPINE FUMARATE 200 MG PO SCH (21:31)
[2022-12-14] MEDS: DIVALPROEX NA *ER* EXTEND REL 500 MG TABLET.SA (FP) PO SCH (21:32)
[2022-12-15] MEDS: ACETAMINOPHEN 500 MG TABLET (FP) PO PRN ×3 (02:33→21:41)
[2022-12-15] MEDS: BACLOFEN 10 MG TABLET (FP) PO PRN ×3 (05:43→21:39)
[2022-12-15] MEDS: GABAPENTIN 300 MG CAPSULE PO SCH ×3 (05:43→21:40)
[2022-12-15] MEDS: COLLOIDAL OATMEAL 1 BAR EACH TP PRN (06:05)
[2022-12-15] MEDS: TAMSULOSIN HCL 0.4 MG CAP PO SCH (07:07)
[2022-12-15] MEDS: ARTIFICIAL TEARS (POLYVINYL ALCOHOL) OPTH DROPS OU SCH (10:05)
[2022-12-15] MEDS: CELECOXIB 200 MG CAPSULE PO SCH ×2 (10:05→21:40)
[2022-12-15] MEDS: METHYL SALICYLATE/MENTHOL OINT 30 GM TUBE TP SCH ×2 (10:05→21:39)
[2022-12-15] MEDS: ISOSORBIDE MONONITRATE 60 MG TAB.SR.24H (FP) PO SCH (10:05)
[2022-12-15] MEDS: ASPIRIN 81 MG CHEWABLE TABLETS PO SCH (10:05)
[2022-12-15] MEDS: amLODIPine BESYLATE 2.5 MG TABLET (FP) PO SCH (10:05)
[2022-12-15] MEDS: LIDOCAINE HCL 5% TOP OINTMENT 50 GM TUBE TP SCH (10:06)
[2022-12-15] MEDS: NICOTINE 10 MG CARTRIDGE (INHALER) IH SCH (10:06)
[2022-12-15] MEDS: NICOTINE 21 MG/24 HOURS TOPICAL PATCH TD SCH (10:06)
[2022-12-15] MEDS: DULoxetine HCL 30 MG CAPSULE.DR PO SCH (10:06)
[2022-12-15] MEDS: NICOTINE POLACRILEX 2 MG GUM BUC PRN (10:08)
[2022-12-15] MEDS: PRENATAL VITAMINS W/ FOLIC ACID TABLET (FP) PO SCH (10:32)
[2022-12-15] MEDS: THIAMINE HCL 100 MG TABLET (FP) PO SCH (21:39)
[2022-12-15] MEDS: QUETIAPINE FUMARATE 300 MG, QUETIAPINE FUMARATE 200 MG PO SCH (21:39)
[2022-12-15] MEDS: DIVALPROEX NA *ER* EXTEND REL 500 MG TABLET.SA (FP) PO SCH (21:40)
[2022-12-16] MEDS: BACLOFEN 10 MG TABLET (FP) PO PRN ×3 (06:25→21:16)
[2022-12-16] MEDS: GABAPENTIN 300 MG CAPSULE PO SCH ×3 (06:25→21:17)
[2022-12-16] MEDS: ACETAMINOPHEN 500 MG TABLET (FP) PO PRN ×2 (06:25→14:06)
[2022-12-16] MEDS: TAMSULOSIN HCL 0.4 MG CAP PO SCH (07:03)
[2022-12-16] MEDS: DULoxetine HCL 30 MG CAPSULE.DR PO SCH (09:43)
[2022-12-16] MEDS: ASPIRIN 81 MG CHEWABLE TABLETS PO SCH (09:44)
[2022-12-16] MEDS: ARTIFICIAL TEARS (POLYVINYL ALCOHOL) OPTH DROPS OU SCH (09:44)
[2022-12-16] MEDS: CELECOXIB 200 MG CAPSULE PO SCH ×2 (09:44→21:17)
[2022-12-16] MEDS: PRENATAL VITAMINS W/ FOLIC ACID TABLET (FP) PO SCH (09:45)
[2022-12-16] MEDS: NICOTINE 21 MG/24 HOURS TOPICAL PATCH TD SCH (09:45)
[2022-12-16] MEDS: LIDOCAINE HCL 5% TOP OINTMENT 50 GM TUBE TP SCH (09:45)
[2022-12-16] MEDS: METHYL SALICYLATE/MENTHOL OINT 30 GM TUBE TP SCH ×2 (09:45→21:18)
[2022-12-16] MEDS: amLODIPine BESYLATE 2.5 MG TABLET (FP) PO SCH (09:45)
[2022-12-16] MEDS: NICOTINE 10 MG CARTRIDGE (INHALER) IH SCH (09:45)
[2022-12-16] MEDS: ISOSORBIDE MONONITRATE 60 MG TAB.SR.24H (FP) PO SCH (09:45)
[2022-12-16] MEDS: NICOTINE POLACRILEX 2 MG GUM BUC PRN (09:46)
[2022-12-16] MEDS: COLLOIDAL OATMEAL 1 BAR EACH TP PRN (10:39)
[2022-12-16] MEDS: THIAMINE HCL 100 MG TABLET (FP) PO SCH (21:15)
[2022-12-16] MEDS: DIVALPROEX NA *ER* EXTEND REL 500 MG TABLET.SA (FP) PO SCH (21:17)
[2022-12-16] MEDS: QUETIAPINE FUMARATE 300 MG, QUETIAPINE FUMARATE 200 MG PO SCH (21:18)
[2022-12-17] MEDS: GABAPENTIN 300 MG CAPSULE PO SCH ×3 (05:54→21:25)
[2022-12-17] MEDS: BACLOFEN 10 MG TABLET (FP) PO PRN ×3 (05:56→21:28)
[2022-12-17] MEDS: ACETAMINOPHEN 500 MG TABLET (FP) PO PRN ×3 (05:57→21:27)
[2022-12-17] MEDS: TAMSULOSIN HCL 0.4 MG CAP PO SCH (07:03)
[2022-12-17] MEDS: ASPIRIN 81 MG CHEWABLE TABLETS PO SCH (10:09)
[2022-12-17] MEDS: ISOSORBIDE MONONITRATE 60 MG TAB.SR.24H (FP) PO SCH (10:09)
[2022-12-17] MEDS: PRENATAL VITAMINS W/ FOLIC ACID TABLET (FP) PO SCH (10:09)
[2022-12-17] MEDS: DULoxetine HCL 30 MG CAPSULE.DR PO SCH (10:09)
[2022-12-17] MEDS: amLODIPine BESYLATE 2.5 MG TABLET (FP) PO SCH (10:09)
[2022-12-17] MEDS: NICOTINE 10 MG CARTRIDGE (INHALER) IH SCH (10:09)
[2022-12-17] MEDS: METHYL SALICYLATE/MENTHOL OINT 30 GM TUBE TP SCH ×2 (10:10→21:27)
[2022-12-17] MEDS: CELECOXIB 200 MG CAPSULE PO SCH ×2 (10:10→21:25)
[2022-12-17] MEDS: LIDOCAINE HCL 5% TOP OINTMENT 50 GM TUBE TP SCH (10:12)
[2022-12-17] MEDS: ARTIFICIAL TEARS (POLYVINYL ALCOHOL) OPTH DROPS OU SCH (10:12)
[2022-12-17] MEDS: NICOTINE 21 MG/24 HOURS TOPICAL PATCH TD SCH (10:48)
[2022-12-17] MEDS: QUETIAPINE FUMARATE 300 MG, QUETIAPINE FUMARATE 200 MG PO SCH (21:25)
[2022-12-17] MEDS: THIAMINE HCL 100 MG TABLET (FP) PO SCH (21:25)
[2022-12-17] MEDS: DIVALPROEX NA *ER* EXTEND REL 500 MG TABLET.SA (FP) PO SCH (21:26)
[2022-12-18] MEDS: ACETAMINOPHEN 500 MG TABLET (FP) PO PRN ×3 (05:58→21:06)
[2022-12-18] MEDS: BACLOFEN 10 MG TABLET (FP) PO PRN ×2 (05:59→14:39)
[2022-12-18] MEDS: GABAPENTIN 300 MG CAPSULE PO SCH ×3 (06:00→21:05)
[2022-12-18] MEDS: TAMSULOSIN HCL 0.4 MG CAP PO SCH (07:01)
[2022-12-18] MEDS: CELECOXIB 200 MG CAPSULE PO SCH ×2 (09:37→21:05)
[2022-12-18] MEDS: DULoxetine HCL 30 MG CAPSULE.DR PO SCH (09:37)
[2022-12-18] MEDS: PRENATAL VITAMINS W/ FOLIC ACID TABLET (FP) PO SCH (09:37)
[2022-12-18] MEDS: amLODIPine BESYLATE 2.5 MG TABLET (FP) PO SCH (09:38)
[2022-12-18] MEDS: ASPIRIN 81 MG CHEWABLE TABLETS PO SCH (09:39)
[2022-12-18] MEDS: ISOSORBIDE MONONITRATE 60 MG TAB.SR.24H (FP) PO SCH (09:39)
[2022-12-18] MEDS: ARTIFICIAL TEARS (POLYVINYL ALCOHOL) OPTH DROPS OU SCH (09:40)
[2022-12-18] MEDS: NICOTINE 10 MG CARTRIDGE (INHALER) IH SCH (09:41)
[2022-12-18] MEDS: NICOTINE 21 MG/24 HOURS TOPICAL PATCH TD SCH (09:41)
[2022-12-18] MEDS: NICOTINE POLACRILEX 2 MG GUM BUC PRN (09:42)
[2022-12-18] MEDS: LIDOCAINE HCL 5% TOP OINTMENT 50 GM TUBE TP SCH (09:42)
[2022-12-18] MEDS: METHYL SALICYLATE/MENTHOL OINT 30 GM TUBE TP SCH ×2 (09:43→21:07)
[2022-12-18] MEDS: THIAMINE HCL 100 MG TABLET (FP) PO SCH (21:05)
[2022-12-18] MEDS: DIVALPROEX NA *ER* EXTEND REL 500 MG TABLET.SA (FP) PO SCH (21:05)
[2022-12-18] MEDS: QUETIAPINE FUMARATE 300 MG, QUETIAPINE FUMARATE 200 MG PO SCH (21:06)
[2022-12-19] MEDS: BACLOFEN 10 MG TABLET (FP) PO PRN ×2 (05:54→13:41)
[2022-12-19] MEDS: ACETAMINOPHEN 500 MG TABLET (FP) PO PRN ×3 (05:54→21:27)
[2022-12-19] MEDS: GABAPENTIN 300 MG CAPSULE PO SCH ×3 (05:55→21:28)
[2022-12-19] MEDS: COLLOIDAL OATMEAL 1 BAR EACH TP PRN (05:59)
[2022-12-19] MEDS: TAMSULOSIN HCL 0.4 MG CAP PO SCH (07:12)
[2022-12-19] MEDS: ASPIRIN 81 MG CHEWABLE TABLETS PO SCH (10:18)
[2022-12-19] MEDS: ARTIFICIAL TEARS (POLYVINYL ALCOHOL) OPTH DROPS OU SCH (10:18)
[2022-12-19] MEDS: DULoxetine HCL 30 MG CAPSULE.DR PO SCH (10:18)
[2022-12-19] MEDS: amLODIPine BESYLATE 2.5 MG TABLET (FP) PO SCH (10:19)
[2022-12-19] MEDS: NICOTINE 10 MG CARTRIDGE (INHALER) IH SCH (10:19)
[2022-12-19] MEDS: METHYL SALICYLATE/MENTHOL OINT 30 GM TUBE TP SCH ×2 (10:19→22:30)
[2022-12-19] MEDS: NICOTINE 21 MG/24 HOURS TOPICAL PATCH TD SCH (10:19)
[2022-12-19] MEDS: ISOSORBIDE MONONITRATE 60 MG TAB.SR.24H (FP) PO SCH (10:19)
[2022-12-19] MEDS: CELECOXIB 200 MG CAPSULE PO SCH ×2 (10:19→21:27)
[2022-12-19] MEDS: NICOTINE POLACRILEX 2 MG GUM BUC PRN ×2 (10:20→16:34)
[2022-12-19] MEDS: PRENATAL VITAMINS W/ FOLIC ACID TABLET (FP) PO SCH (10:20)
[2022-12-19] MEDS: LIDOCAINE HCL 5% TOP OINTMENT 50 GM TUBE TP SCH (10:20)
[2022-12-19] MEDS: DIVALPROEX NA *ER* EXTEND REL 500 MG TABLET.SA (FP) PO SCH (21:27)
[2022-12-19] MEDS: THIAMINE HCL 100 MG TABLET (FP) PO SCH (21:28)
[2022-12-19] MEDS: QUETIAPINE FUMARATE 300 MG, QUETIAPINE FUMARATE 200 MG PO SCH (21:28)
[2022-12-20] MEDS: BACLOFEN 10 MG TABLET (FP) PO PRN ×2 (06:01→21:35)
[2022-12-20] MEDS: ACETAMINOPHEN 500 MG TABLET (FP) PO PRN ×2 (06:01→12:55)
[2022-12-20] MEDS: GABAPENTIN 300 MG CAPSULE PO SCH ×3 (06:01→21:35)
[2022-12-20] MEDS: TAMSULOSIN HCL 0.4 MG CAP PO SCH (07:04)
[2022-12-20] MEDS: ISOSORBIDE MONONITRATE 60 MG TAB.SR.24H (FP) PO SCH (09:51)
[2022-12-20] MEDS: PRENATAL VITAMINS W/ FOLIC ACID TABLET (FP) PO SCH (09:51)
[2022-12-20] MEDS: ASPIRIN 81 MG CHEWABLE TABLETS PO SCH (09:52)
[2022-12-20] MEDS: DULoxetine HCL 30 MG CAPSULE.DR PO SCH (09:52)
[2022-12-20] MEDS: CELECOXIB 200 MG CAPSULE PO SCH ×2 (09:53→21:36)
[2022-12-20] MEDS: ARTIFICIAL TEARS (POLYVINYL ALCOHOL) OPTH DROPS OU SCH (09:54)
[2022-12-20] MEDS: NICOTINE 21 MG/24 HOURS TOPICAL PATCH TD SCH (09:54)
[2022-12-20] MEDS: amLODIPine BESYLATE 2.5 MG TABLET (FP) PO SCH (09:54)
[2022-12-20] MEDS: NICOTINE 10 MG CARTRIDGE (INHALER) IH SCH ×4 (09:55→21:36)
[2022-12-20] MEDS: COLLOIDAL OATMEAL 1 BAR EACH TP PRN (10:03)
[2022-12-20] MEDS: METHYL SALICYLATE/MENTHOL OINT 30 GM TUBE TP SCH ×2 (10:57→21:36)
[2022-12-20] MEDS: LIDOCAINE HCL 5% TOP OINTMENT 50 GM TUBE TP SCH (12:59)
[2022-12-20] MEDS: THIAMINE HCL 100 MG TABLET (FP) PO SCH (21:35)
[2022-12-20] MEDS: QUETIAPINE FUMARATE 300 MG, QUETIAPINE FUMARATE 200 MG PO SCH (21:35)
[2022-12-20] MEDS: DIVALPROEX NA *ER* EXTEND REL 500 MG TABLET.SA (FP) PO SCH (21:36)
[2022-12-21] MEDS: NICOTINE 10 MG CARTRIDGE (INHALER) IH SCH ×6 (02:17→20:40)
[2022-12-21] MEDS: BACLOFEN 10 MG TABLET (FP) PO PRN ×2 (06:44→16:40)
[2022-12-21] MEDS: GABAPENTIN 300 MG CAPSULE PO SCH ×3 (06:44→21:16)
[2022-12-21] MEDS: TAMSULOSIN HCL 0.4 MG CAP PO SCH (07:04)
[2022-12-21] MEDS: HYDROCORTISONE 2.5% TOPICAL CREAM 30 GM TUBE RC PRN (09:00)
[2022-12-21] MEDS: LIDOCAINE HCL 5% TOP OINTMENT 50 GM TUBE TP SCH (09:00)
[2022-12-21] MEDS: DULoxetine HCL 30 MG CAPSULE.DR PO SCH (10:22)
[2022-12-21] MEDS: NICOTINE 21 MG/24 HOURS TOPICAL PATCH TD SCH (10:22)
[2022-12-21] MEDS: ASPIRIN 81 MG CHEWABLE TABLETS PO SCH (10:23)
[2022-12-21] MEDS: ARTIFICIAL TEARS (POLYVINYL ALCOHOL) OPTH DROPS OU SCH (10:23)
[2022-12-21] MEDS: METHYL SALICYLATE/MENTHOL OINT 30 GM TUBE TP SCH ×2 (10:24→21:18)
[2022-12-21] MEDS: CELECOXIB 200 MG CAPSULE PO SCH ×2 (10:24→21:16)
[2022-12-21] MEDS: PRENATAL VITAMINS W/ FOLIC ACID TABLET (FP) PO SCH (10:25)
[2022-12-21] MEDS: amLODIPine BESYLATE 2.5 MG TABLET (FP) PO SCH (10:25)
[2022-12-21] MEDS: ISOSORBIDE MONONITRATE 60 MG TAB.SR.24H (FP) PO SCH (10:26)
[2022-12-21] MEDS: ACETAMINOPHEN 500 MG TABLET (FP) PO PRN ×2 (10:27→16:39)
[2022-12-21] MEDS: NICOTINE POLACRILEX 2 MG GUM BUC PRN ×2 (13:18→16:40)
[2022-12-21] MEDS: THIAMINE HCL 100 MG TABLET (FP) PO SCH (21:16)
[2022-12-21] MEDS: DIVALPROEX NA *ER* EXTEND REL 500 MG TABLET.SA (FP) PO SCH (21:17)
[2022-12-21] MEDS: QUETIAPINE FUMARATE 300 MG, QUETIAPINE FUMARATE 200 MG PO SCH (21:18)
[2022-12-22] MEDS: NICOTINE 10 MG CARTRIDGE (INHALER) IH SCH ×6 (01:08→20:40)
[2022-12-22] MEDS: BACLOFEN 10 MG TABLET (FP) PO PRN ×3 (06:24→21:30)
[2022-12-22] MEDS: ACETAMINOPHEN 500 MG TABLET (FP) PO PRN ×3 (06:24→21:31)
[2022-12-22] MEDS: GABAPENTIN 300 MG CAPSULE PO SCH ×3 (06:24→21:28)
[2022-12-22] MEDS: TAMSULOSIN HCL 0.4 MG CAP PO SCH (07:02)
[2022-12-22 09:27] VITALS: RESP 18
[2022-12-22] MEDS: PRENATAL VITAMINS W/ FOLIC ACID TABLET (FP) PO SCH (09:46)
[2022-12-22] MEDS: ASPIRIN 81 MG CHEWABLE TABLETS PO SCH (09:47)
[2022-12-22] MEDS: amLODIPine BESYLATE 2.5 MG TABLET (FP) PO SCH (09:47)
[2022-12-22] MEDS: CELECOXIB 200 MG CAPSULE PO SCH ×2 (09:47→21:28)
[2022-12-22] MEDS: METHYL SALICYLATE/MENTHOL OINT 30 GM TUBE TP SCH ×2 (09:48→21:31)
[2022-12-22] MEDS: LIDOCAINE HCL 5% TOP OINTMENT 50 GM TUBE TP SCH (09:49)
[2022-12-22] MEDS: ISOSORBIDE MONONITRATE 60 MG TAB.SR.24H (FP) PO SCH (09:49)
[2022-12-22] MEDS: NICOTINE 21 MG/24 HOURS TOPICAL PATCH TD SCH (09:50)
[2022-12-22] MEDS: ARTIFICIAL TEARS (POLYVINYL ALCOHOL) OPTH DROPS OU SCH (11:37)
[2022-12-22] MEDS: DULoxetine HCL 30 MG CAPSULE.DR PO SCH (11:38)
[2022-12-22] MEDS: THIAMINE HCL 100 MG TABLET (FP) PO SCH (21:27)
[2022-12-22] MEDS: DIVALPROEX NA *ER* EXTEND REL 500 MG TABLET.SA (FP) PO SCH (21:28)
[2022-12-22] MEDS: QUETIAPINE FUMARATE 300 MG, QUETIAPINE FUMARATE 200 MG PO SCH (21:29)
[2022-12-23] MEDS: NICOTINE 10 MG CARTRIDGE (INHALER) IH SCH (01:21)
[2022-12-23] MEDS: GABAPENTIN 300 MG CAPSULE PO SCH (06:06)
[2022-12-23] MEDS: BACLOFEN 10 MG TABLET (FP) PO PRN (06:08)
[2022-12-23 06:54] VITALS: TEMP 97.3
[2022-12-23] MEDS: TAMSULOSIN HCL 0.4 MG CAP PO SCH (07:16)
[2022-12-23] MEDS: DULoxetine HCL 30 MG CAPSULE.DR PO SCH (09:12)
[2022-12-23] MEDS: ASPIRIN 81 MG CHEWABLE TABLETS PO SCH (09:12)
[2022-12-23] MEDS: ARTIFICIAL TEARS (POLYVINYL ALCOHOL) OPTH DROPS OU SCH (09:13)
[2022-12-23] MEDS: METHYL SALICYLATE/MENTHOL OINT 30 GM TUBE TP SCH (09:13)
[2022-12-23] MEDS: PRENATAL VITAMINS W/ FOLIC ACID TABLET (FP) PO SCH (09:13)
[2022-12-23] MEDS: CELECOXIB 200 MG CAPSULE PO SCH (09:13)
[2022-12-23] MEDS: amLODIPine BESYLATE 2.5 MG TABLET (FP) PO SCH (09:13)
[2022-12-23] MEDS: ISOSORBIDE MONONITRATE 60 MG TAB.SR.24H (FP) PO SCH (09:13)
[2022-12-23] MEDS: NICOTINE 21 MG/24 HOURS TOPICAL PATCH TD SCH (09:13)
[2022-12-23] MEDS: LIDOCAINE HCL 5% TOP OINTMENT 50 GM TUBE TP SCH (09:14)
[2022-12-23 09:17] VITALS: BP 161/85; PULSE 92
[2022-12-23] MEDS: ACETAMINOPHEN 500 MG TABLET (FP) PO PRN (09:17)
== END 2022-12-23 09:35 | disposition home or self-care (01) | DRG 895 ==
LOC: YASAS 12:29 → Y3W 12:32
PROVIDERS: ADMIT Allergy & Immunology; ATTEND Psychiatry & Neurology Pain Medicine
PROC: HZ42ZZZ Group Counseling for Substance Abuse Treatment, Cognitive-Behavioral (ICD-10-PCS; principal; 2022-11-25)
DX: F10.20 Alcohol dependence, uncomplicated (principal); F17.210 Nicotine dependence, cigarettes, uncomplicated; F31.9 Bipolar disorder, unspecified; F10.24 Alcohol dependence with alcohol-induced mood disorder; F41.9 Anxiety disorder, unspecified; F32.A Depression, unspecified; E78.5 Hyperlipidemia, unspecified; G47.00 Insomnia, unspecified; I10 Essential (primary) hypertension; N39.498 Other specified urinary incontinence; M47.9 Spondylosis, unspecified; Z85.46 Personal history of malignant neoplasm of prostate; Z88.8 Allergy status to other drugs, medicaments and biological substances
CPT/HCPCS: 71046-TC-FY; 80164; 81003; J0475